=== PATIENT | female | born 1945 | race Caucasian/White ===

== ENCOUNTER → 2018-04-20 | Day surgery (SDC) | payer MEDICARE ==
[2018-04-19 09:05] VITALS: BMI 48.8
[~2018-04-20] MED LIST: Lidocaine 1% PF 5 ML VIAL ONE; PROPOFOL 200 MG/20 ML VIAL ONE
--- NOTE | 2018-04-20 12:07 | OP ---
DATE OF PROCEDURE: 04/20/2018 SURGEON: Dr. Jason Prak PROCEDURE: Esophagogastroduodenoscopy with biopsy and colonoscopy with snare polypectomy. PREOPERATIVE DIAGNOSES: Change in bowel habits and family history of colon cancer in two second degr ee relatives and dyspepsia. She was also noted to have ultrasound changes with increased echogenicit y suggestive of KELLEY or hepatocellular disease. She also has thrombocytopenia which could be an ariel cator of cirrhosis. OPERATIVE DETAIL: Informed consent was obtained from the patient. She was sedated with total intrav enous anesthesia. The bite block was placed and the endoscope was advanced easily to the second port ion of the duodenum and retroflexion was performed in the stomach. The esophagus was normal. There were no varices. The stomach had mild portal hypertensive gastropathy in the fundus and proximal bod y. There was erythematous gastritis in the antrum, which was mild and patchy. Biopsies were obtaine d to rule out H. pylori. The first and second portions of the duodenum were normal. The patient was turned around. Rectal exam was performed and was normal. The colonoscope was advanc ed to the cecum without difficulty. The ileocecal valve and appendiceal orifice were clearly identif ied. The preparation quality was good. A 5 mm polyp was removed from the distal sigmoid by cold sna re polypectomy. Retroflexed views in the rectum were unremarkable. IMPRESSION: 1. Mild portal hypertensive gastropathy in the fundus and proximal body of the stomach. 2. Mild erythematous patchy gastritis in the antrum, biopsies taken to rule out Helicobacter pylori. 3. Otherwise normal esophagogastroduodenoscopy. No varices present. 4. 5 mm polyp removed from the sigmoid colon by cold snare. 5. Otherwise normal colonoscopy. RECOMMENDATIONS: 1. Await histopathology. 2. Repeat colonoscopy in 5 years if the polyp is an adenoma. If the polyp is hyperplastic, then con apprentice pattern maker repeat a colonoscopy in 10 years depending on health status and guidelines at that time. 3. Check [facility] KELLEY lab to help further differentiate degree of fibrosis in the liver. She most likely has cirrhosis given the thrombocytopenia and coarse echotexture of the liver and portal hyper tensive gastropathy. She should follow through with hepatoma screening with ultrasound and alpha fet oprotein every 6 months, but at this point liver biopsy probably will not supervisor records change significa ntly as her liver function itself is normal. 4. Follow up in GI Clinic.
== END ==
LOC: SDC 09:08
PROVIDERS: ATTEND Internal Medicine Gastroenterology
PROC: 0DB78ZX Excision of Stomach, Pylorus, Via Natural or Artificial Opening Endoscopic, Diagnostic (ICD-10-PCS; principal; 2018-04-20)
PROC: 0DBN8ZX Excision of Sigmoid Colon, Via Natural or Artificial Opening Endoscopic, Diagnostic (ICD-10-PCS; 2018-04-20)
DX: D12.5 Benign neoplasm of sigmoid colon (principal); K29.50 Unspecified chronic gastritis without bleeding; K76.6 Portal hypertension; K31.89 Other diseases of stomach and duodenum; M19.90 Unspecified osteoarthritis, unspecified site; G47.30 Sleep apnea, unspecified; F32.9 Major depressive disorder, single episode, unspecified; E07.9 Disorder of thyroid, unspecified; Z79.899 Other long term (current) drug therapy
CPT/HCPCS: 88305; 88312

== ENCOUNTER 2018-11-16 08:37 | Outpatient (CLI) | payer MEDICARE ==
--- NOTE | 2018-11-16 09:55 | ULT ---
Hepatic sonogram with duplex evaluation HISTORY: Cirrhosis. FINDINGS: Gallbladder is surgically absent. Common duct is 0.4 cm. Liver has a very heterogeneous and coarse echotexture. Slightly nodular contour. Enlarged but unable to be measured with the sonographic windows. No free fluid is apparent. No free fluid in the abdomen. Spleen is 10.8 cm. Good color and spectral Doppler flow within the hepatic and splenic arteries. Portal venous flow is t owards the liver. Hepatic venous flow is towards the IVC. IMPRESSION: Hepatomegaly. Nodular contour of the left. Status post cholecystectomy. No evidence of biliary obstruction. No sonographic findings of portal venous hypertension.
== END 2018-11-16 08:38 | disposition home or self-care (01) ==
LOC: SCSULT 08:37 → ULT 08:38
PROVIDERS: ATTEND Internal Medicine Gastroenterology
DX: K74.60 Unspecified cirrhosis of liver (principal); R16.0 Hepatomegaly, not elsewhere classified; K76.89 Other specified diseases of liver; Z90.49 Acquired absence of other specified parts of digestive tract
CPT/HCPCS: 76705

== ENCOUNTER 2019-06-07 12:31 | Outpatient (CLI) | payer MEDICARE ==
--- NOTE | 2019-06-07 13:10 | MMO ---
Bilateral MAMMO Bilat Screen [facility]. CLINICAL HISTORY: Patient is 73 years old and is seen for screening. The patient has no family history of breast cancer. The patient has no personal history of cancer. VIEWS: The views performed were: bilateral craniocaudal with tomosynthesis; bilateral mediolateral oblique with tomosynthesis; and left mediolateral oblique. FILMS COMPARED: The present examination has been compared to prior imaging studies performed at [facility] on 05/23/2014 and 11/04/2015. This study has been interpreted with the assistance of computer-aided detection. MAMMOGRAM FINDINGS: There are scattered fibroglandular densities. There are no suspicious masses, suspicious calcifications, or new areas of architectural distortion. IMPRESSION: THERE IS NO MAMMOGRAPHIC EVIDENCE OF MALIGNANCY. A ROUTINE FOLLOW-UP MAMMOGRAM IN 1 YEAR IS RECOMMENDED. THE RESULTS OF THIS EXAM WERE SENT TO THE PATIENT. ACR BI-RADS Category 1 - Negative MAMMOGRAPHY NOTE: 1. A negative mammogram report should not delay a biopsy if a dominant of clinically suspicious mass is present. 2. Approximately 10% to 15% of breast cancers are not detected by mammography. 3. Adenosis and dense breasts may obscure an underlying neoplasm. Reported by: Lucita SHIRLEY Electonically Signed: [id number]
== END 2019-06-07 12:32 | disposition home or self-care (01) ==
LOC: BICMAMMO 12:31
PROVIDERS: ATTEND Family Medicine
DX: Z12.31 Encounter for screening mammogram for malignant neoplasm of breast (principal)
CPT/HCPCS: 77063; 77067

== ENCOUNTER 2019-06-14 09:57 | Outpatient (CLI) | payer MEDICARE ==
--- NOTE | 2019-06-14 13:09 | ULT ---
HEPATIC DOPPLER ULTRASOUND: Date: 06/14/19 COMPARISON: 11/16/18. HISTORY: Cirrhosis. COMPARISON: None. TECHNIQUE: Cedeño scale, color flow, Doppler imaging with spectral waveform analysis performed of the liver. FINDINGS: Limited evaluation due to body habitus. Limited evaluation of the pancreas. Heterogeneous echotexture of the liver is presumed to be due to hepatocellular disease. Limited evalu ation for hepatic masses and intrahepatic biliary dilatation. Surgically absent gallbladder. Spleen has a normal echotexture, measuring 10.6 cm in maximum dimension. Hepatic Doppler: There is patency and appropriate direction of flow in the main portal vein, right p ortal vein, left portal vein, right hepatic vein, left hepatic vein, middle hepatic vein, and hepatic artery. The splenic vein and artery have patency and appropriate direction of flow. IMPRESSION: 1. Normal hepatic Doppler. 2. Limited evaluation of the hepatic parenchyma due to body habitus. POS: [facility]
== END 2019-06-14 09:58 | disposition home or self-care (01) ==
LOC: BICULT 09:57
PROVIDERS: ATTEND Physician Assistant Medical
DX: K74.60 Unspecified cirrhosis of liver (principal)
CPT/HCPCS: 76705

== ENCOUNTER 2019-07-26 14:18 | Outpatient (CLI) | payer MEDICARE ==
--- NOTE | 2019-07-26 15:11 | CT ---
CT OF THE ABDOMEN WITH AND WITHOUT CONTRAST: DATE: 07/26/2019. COMPARISON: None. HISTORY: Cirrhosis. TECHNIQUE: Axial CT imaging is obtained at 5 mm intervals through the abdomen with and without IV contrast using hepatic mass protocol with coronal and sagittal reformatted imaging. FINDINGS: The imaged lung bases are unremarkable. The lack of oral contrast media limits assessment of the imag ed bowel. The pelvis is not imaged on this exam. The hepatic parenchyma is heterogeneous in the peripheral contour of the liver is irregular, consiste nt with the provided history of cirrhosis. No focal liver lesion is identified. Cholecystectomy clips are present. The spleen appears normal in size. The pancreas and adrenal glands are grossly unremarkable. No evidence for nephrolithiasis or hydronephrosis noted on either side. There is a cyst emanating from the posterior left renal midpole measuring approximately 1 cm. No ascites is noted in the upper abdomen. There is scattered atherosclerotic calcification of the abdominal aorta and its branches. Imaged bowel appears grossly unremarkable. There is prominent multilevel degenerative change within the lower lumbar spine with multilevel disc space narrowing, vacuum disc formation, and facet hypertrophic change. Age indeterminant anterior wedge compression fracture of the T12 vertebral body noted with approximately 40% loss of vertebral b susanne height anteriorly. No worrisome lytic or blastic bone lesions. IMPRESSION: Cirrhotic configuration of the liver. No focal liver lesion. No splenomegaly or upper abdominal ascit es. Transcribed Date/Time: 07/26/2019 3:20 PM
--- NOTE | 2019-07-26 16:11 | MRI ---
Cervical spine MRI without contrast: 07/26/2019 COMPARISON: None HISTORY: Cervical radiculopathy TECHNIQUE: Multiplanar multisequence MR imaging of the cervical spine without contrast FINDINGS: The sagittal STIR imaging demonstrates no evidence for osseous marrow edema. There is moderate degenerative change at the atlantoaxial interspace. The craniocervical junction virginie ears intact. There is mild multilevel anterolisthesis at C3-4, C4-5, and C7-T1, measuring up to approximately 3-4 mm. C2-3: There is left-sided facet and uncovertebral osteophyte formation. Mild left neural foraminal st enosis. No significant central canal or right neural foraminal stenosis. C3-4: There is disc space narrowing and disc desiccation. Prominent right-sided facet and uncovertebr al osteophyte formation with severe right-sided neural foraminal stenosis. No significant central canal or left neural foraminal stenosis. C4-5: There is disc space narrowing with disc desiccation. Bilateral facet and uncovertebral osteophy te formation noted, right greater than left. Mild left and moderate/severe right neural foraminal stenosis. C5-6: There is disc space narrowing with disc desiccation and disc bulge partially effacing the ventr al thecal sac and leading to a mild degree of central canal stenosis. Anterior osteophyte formation noted. Bilateral facet and uncovertebral osteophyte formation with moderate bilateral neural foramina l stenosis, left greater than right. C6-7: There is disc space narrowing with disc desiccation and disc bulge. This effaces the ventral th ecal sac and causes mild central canal stenosis. Bilateral facet and uncovertebral osteophyte formation leads to moderate/severe bilateral neural foraminal stenosis. C7-T1: Bilateral facet hypertrophy noted with mild bilateral neural foraminal stenosis. There is disc space narrowing and disc desiccation with no significant central canal stenosis. No discrete focal area of abnormal signal intensity within the cervical cord. IMPRESSION: Prominent multilevel cervical spine degenerative change as detailed above.
--- NOTE | 2019-07-26 16:32 | RAD ---
Cervical spine 4 views: 07/26/2019 COMPARISON: None HISTORY: Cervical radiculopathy FINDINGS: Neutral lateral examination demonstrates anterolisthesis at C3-4 measuring 4 mm and at C4-5 measuring 3 mm. There is disc space narrowing with degenerative endplate change and anterior osteophyte formation at C5-6 and C6-7. Multilevel bilateral facet hypertrophy noted. The flexion imaging demonstrates anterolisthesis at C3-4 measuring 5 mm and at C4-5 measuring 4 mm. On the extension imaging the anterolisthesis at C3-4 measures 2 mm and at C4-5 measures approximately 1 mm. Frontal imaging demonstrates right-sided facet and uncovertebral osteophyte formation at multiple levels, most prominent at C3-4, C4-5, and C5-6. Most prominent left-sided facet hypertrophy noted at C2-3. No prevertebral soft tissue swelling. IMPRESSION: Prominent multilevel cervical spine degenerative change as detailed above.
== END 2019-07-26 14:19 | disposition home or self-care (01) ==
LOC: BICCT 14:18
PROVIDERS: ATTEND Physician Assistant Medical
DX: M47.22 Other spondylosis with radiculopathy, cervical region (principal); K74.60 Unspecified cirrhosis of liver
CPT/HCPCS: 72050; 72141; 74170; 82565

== ENCOUNTER 2020-01-21 09:00 | Outpatient (CLI) | payer MEDICARE ==
--- NOTE | 2020-01-21 11:14 | ULT ---
HEPATIC ULTRASOUND WITH DOPPLER: INDICATION: Cirrhosis. FINDINGS: The patient is status post cholecystectomy. The liver is mildly heterogeneous with a nodular echotexture and irregular margin consistent with isabela nges of cirrhosis. No evidence of mass. Common bile duct is normal caliber measured at 4-5 mm. The spleen is upper normal size measured at 12 cm. Color Doppler and spectral analysis demonstrates hepatopetal blood flow in all visualized vessels. P ortal veins, hepatic veins, hepatic artery, IVC, and aorta were evaluated with Doppler. IMPRESSION: 1. Heterogeneous liver with changes consistent with cirrhosis. 2. Borderline splenomegaly. 3. Hepatopetal hepatic blood flow. POS: [facility]
== END 2020-01-21 09:01 | disposition home or self-care (01) ==
LOC: BICULT 09:00
PROVIDERS: ATTEND Physician Assistant Medical
DX: K74.60 Unspecified cirrhosis of liver (principal)
CPT/HCPCS: 76705

== ENCOUNTER 2020-02-07 13:33 | Outpatient (CLI) | payer MEDICARE ==
--- NOTE | 2020-02-07 15:30 | MRI ---
MRI lumbar spine noncontrast HISTORY: Low back pain with right leg radiculopathy. FINDINGS: The conus medullaris has normal appearance. There is desiccation of all of the intervertebr al discs. Images including the retroperitoneum show a 1.2 cm exophytic cyst projecting posteriorly from the lef t kidney. T10-11: Disc space narrowing and posterior disc bulge. At least moderate central canal stenosis. T11-12: Compression of the T12 superior endplate by an average of 40%. Minimal retropulsion of the villarreal perior endplate. No residual edema. Posterior disc bulge and circumferential degenerative changes. Mild stenosis of the central canal. Severe bilateral foraminal stenoses. T12-L1: Disc space narrowing and minimal degenerative retrolisthesis. Posterior disc bulge and circum ferential degenerative changes. Moderate stenosis of the central canal. Mild stenosis of each neural foramen. L1-2: Mild disc space narrowing. Osteophytosis of the facets. Central canal and neural foramina are p atent. L2-3: Osteophytosis of the facets. Central canal and neural foramina are patent. L3-4: Disc space narrowing. Minimal degenerative retrolisthesis. Posterior disc bulge and circumferen tial degenerative changes. Mild to moderate stenosis of the central canal. Mild stenosis of each neural foramen. L4-5: Disc space narrowing and minimal degenerative spondylolisthesis. Posterior bulge of the interve rtebral discs. Degenerative changes and prominent fluid associated with the facets, left greater than right. Severe stenosis of the central canal. Moderate stenosis of each neural foramen. L5-S1: Minimal degenerative spondylolisthesis. Thecal sac is patent. The spondylolisthesis and osteop hytosis result in moderate right and severe left foraminal stenoses. IMPRESSION : Multilevel degenerative changes throughout the lumbar spine as detailed above. Central canal stenosis is most severe at the L4-5 level. Foraminal stenosis most severe on the left at the lumbosacral junction. Degenerative changes lower thoracic spine also partially visualized with significant central canal st enosis at the T11-12 level. Mild to moderate chronic compression of the T12 superior endplate.
--- NOTE | 2020-02-07 15:52 | RAD ---
Exam: 5 views lumbar spine HISTORY: Lumbar radicular pain. Symptoms times a few weeks. COMPARISON: None FINDINGS: 5 lumbar type vertebra. Lumbar spine vertebral body heights are maintained. No fracture. Visualized sacrum and bony pelvis are intact. Calcification in the right hemipelvis may be associated with a partially calcified/calcified uterine leiomyoma Right hip arthroplasty is noted Mild loss of vertebral body height at T12, without retropulsion. Vacuum disc phenomenon at L3-L4, L4-L5 Spondylolisthesis: L4-L5: Neutral 4.0 mm of anterolisthesis; flexion 6.6 mm of anterolisthesis; extension 3.8 mm of ante rolisthesis. No associated pars defects. Extensive hypertrophy of the facets. L5-S1: Neutral 7.2 mm of anterolisthesis; flexion 1.1 mm of anterolisthesis; extension 3.4 mm of ante rolisthesis. No associated pars defects. Extensive hypertrophic changes in the posterior elements. IMPRESSION: Spondylolisthesis as detailed above. Extensive posterior element hypertrophy.
== END 2020-02-07 13:34 | disposition home or self-care (01) ==
LOC: BICMRI 13:33
PROVIDERS: ATTEND Nurse Practitioner Family
DX: M47.26 Other spondylosis with radiculopathy, lumbar region (principal); M43.16 Spondylolisthesis, lumbar region; M48.061 Spinal stenosis, lumbar region without neurogenic claudication; M48.07 Spinal stenosis, lumbosacral region; M47.815 Spondylosis without myelopathy or radiculopathy, thoracolumbar region; M48.04 Spinal stenosis, thoracic region
CPT/HCPCS: 72110; 72148

== ENCOUNTER 2020-09-22 07:50 | Outpatient (CLI) | payer MEDICARE ==
--- NOTE | 2020-09-22 09:13 | ULT ---
HEPATIC ULTRASOUND WITH MANDUJANO SCALE, COLOR FLOW, AND SPECTRAL DOPPLER IMAGING: HISTORY: Cirrhosis of the liver. COMPARISON: 01/21/2020. FINDINGS: The liver demonstrates heterogeneity and coarse nodular echotexture without focal mass or abnormal bi liary dilatation. The patient is post cholecystectomy. The common duct measures 6 mm in diameter. The spleen is enlarged measuring 14.7 cm in length. The visualized portions of the pancreas, aorta, and IVC are unremarkable. No free fluid is seen. The hepatic portal and splenic vasculature demonstrate normal flow and spectral waveforms. IMPRESSION: 1. Findings are consistent with cirrhosis of the liver without evidence of hepatic mass. 2. Splenomegaly. POS: [facility]
== END 2020-09-22 07:51 | disposition home or self-care (01) ==
LOC: BICULT 07:50
PROVIDERS: ATTEND Physician Assistant Medical
DX: K74.60 Unspecified cirrhosis of liver (principal); R15.9 Full incontinence of feces; R16.1 Splenomegaly, not elsewhere classified
CPT/HCPCS: 76705

== ENCOUNTER 2021-04-07 08:12 | Day surgery (SDC) | payer MEDICARE ==
[2021-04-03 11:44] VITALS: BMI 41.5
[2021-04-07] MEDS ORDERED: Fentanyl 100 MCG/2 ML VIAL ONE (09:52)
[2021-04-07] MEDS ORDERED: PROPOFOL 200 MG/20 ML VIAL ONE (10:02)
== END 2021-04-07 11:55 | disposition home or self-care (01) ==
LOC: SDC 08:12
PROVIDERS: ATTEND Internal Medicine Gastroenterology
PROC: 0DB78ZX Excision of Stomach, Pylorus, Via Natural or Artificial Opening Endoscopic, Diagnostic (ICD-10-PCS; principal; 2021-04-07)
PROC: 0D748ZZ Dilation of Esophagogastric Junction, Via Natural or Artificial Opening Endoscopic (ICD-10-PCS; 2021-04-07)
DX: R13.10 Dysphagia, unspecified (principal); K31.7 Polyp of stomach and duodenum; K29.50 Unspecified chronic gastritis without bleeding; K25.9 Gastric ulcer, unspecified as acute or chronic, without hemorrhage or perforation; K29.80 Duodenitis without bleeding; K21.9 Gastro-esophageal reflux disease without esophagitis; I10 Essential (primary) hypertension; E03.9 Hypothyroidism, unspecified; M15.9 Polyosteoarthritis, unspecified; M81.0 Age-related osteoporosis without current pathological fracture; G43.909 Migraine, unspecified, not intractable, without status migrainosus; Z79.899 Other long term (current) drug therapy; Z91.048 Other nonmedicinal substance allergy status
CPT/HCPCS: 88305; 88312; J3010

== ENCOUNTER 2021-07-02 08:47 | Outpatient (CLI) | payer MEDICARE | END 2021-07-02 08:48 | disposition home or self-care (01) | LOC: BICMRI 08:47 | PROVIDERS: ATTEND Nurse Practitioner Family | DX: M47.22 Other spondylosis with radiculopathy, cervical region (principal) | CPT/HCPCS: 72141 ==

== ENCOUNTER 2022-01-26 08:00 | Outpatient (CLI) | payer MEDICARE | END 2022-01-26 08:01 | disposition home or self-care (01) | LOC: BICMAMMO 08:00 | PROVIDERS: ATTEND Family Medicine | DX: Z13.820 Encounter for screening for osteoporosis (principal); M85.852 Other specified disorders of bone density and structure, left thigh; Z78.0 Asymptomatic menopausal state | CPT/HCPCS: 77063; 77067; 77080 ==

== ENCOUNTER 2022-07-07 13:01 | Emergency (ER) | payer MEDICARE ==
[~2022-07-07 13:01] MED LIST changes: +Iopamidol-370 76% 500 ML 1 ML ONE; -Lidocaine 1% PF 5 ML VIAL ONE; -PROPOFOL 200 MG/20 ML VIAL ONE
[2022-07-07 14:20] LABS: #Lymphocytes 1.6 thou/uL (1.20-3.40); #Monocytes 0.3 thou/uL (0.11-0.59); %Basophils 0.3 % (0.0-1.0); %Eosinophils 0.9 % (0.0-10.0); %Lymphocytes 31.8 % (21.0-51.0); %Monocytes 6.7 % (0.0-10.0); %Neutrophils 60.2 % (42.0-75.0); Hemoglobin 15.1 g/dL (12.0-16.0); Mean Corpuscular HGB CONC 33.1 g/dL (32.0-36.0); Mean Corpuscular Hemoglobin 31.8 pg (27.0-31.0); Mean Corpuscular Volume 96.3 fl (78.0-98.0); Mean Platelet Volume 9.4 fL (7.4-10.4); Platelet Count 128 10x3/uL (130-400); RBC Distribution Width 12.7 % (11.5-14.5); Red Blood Cell (RBC) Count 4.76 mill/uL (4.20-5.40)
[2022-07-07 14:39] LABS: ALT (SGPT) 38 U/L (8-55); AST (SGOT) 52 U/L (5-34); Albumin 4.1 g/dL (3.4-4.8); Alkaline Phosphatase 98 U/L (40-110); Anion Gap 11 mmol/L (10-20); BUN (Urea Nitrogen) 12 mg/dL (9.8-20.1); Bilirubin, Total 1.1 mg/dL (0.2-1.2); Calc. Creatinine Clearance 0 mL/min (70-130); Calcium 9.6 mg/dL (7.8-10.44); Carbon Dioxide 25 mmol/L (23-31); Chloride 104 mmol/L (98-107); Estimated GFR 75; Globulin 2.9 g/dL (2.4-3.5); Glucose 114 mg/dL (83-110); Lipase 27 U/L (8-78); Potassium 4.2 mmol/L (3.5-5.1); Sodium 136 mmol/L (136-145)
[2022-07-07 15:45] LABS: Bilirubin Negative (Negative); Blood, Urine Negative (Negative); Clarity Clear (Clear); Glucose, Urine (Dipstick) Normal (Negative); Ketone, Urine Negative (Negative); Leukocyte Negative Leu/uL (Negative); Nitrite Negative (Negative); Protein, Urine (Dipstick) Negative (Neg-Trace); Urobilinogen Normal mg/dL (Less than 2)
[2022-07-07] MEDS ORDERED: Ondansetron PF 4 MG/2 ML Vial ONE (16:02)
== END 2022-07-07 18:31 | disposition home or self-care (01) ==
LOC: ERS 13:01
DX: R10.31 Right lower quadrant pain (principal); E78.5 Hyperlipidemia, unspecified; I10 Essential (primary) hypertension; Z79.899 Other long term (current) drug therapy
CPT/HCPCS: 74177; 80053; 81003; 83605; 83690; 85025; 96374; 99284; U0003; U0005; 36415; J2405; Q9967

== ENCOUNTER 2023-06-01 08:40 | Outpatient (CLI) | payer MEDICARE | END 2023-06-01 08:41 | disposition home or self-care (01) | LOC: CT 08:40 | PROVIDERS: ATTEND Family Medicine | DX: R41.3 Other amnesia (principal) | CPT/HCPCS: 70470; 82565 ==

== ENCOUNTER 2023-06-16 17:00 | Outpatient (CLI) | payer MEDICARE | END 2023-06-16 17:01 | disposition home or self-care (01) | LOC: SLEEPLAB 17:00 | PROVIDERS: ATTEND Family Medicine | DX: G47.9 Sleep disorder, unspecified (principal); R06.81 Apnea, not elsewhere classified; R09.89 Other specified symptoms and signs involving the circulatory and respiratory systems; F41.9 Anxiety disorder, unspecified; E11.9 Type 2 diabetes mellitus without complications; I25.10 Atherosclerotic heart disease of native coronary artery without angina pectoris; G47.33 Obstructive sleep apnea (adult) (pediatric) | CPT/HCPCS: 95811 ==

== ENCOUNTER 2023-07-14 13:31 | Outpatient (CLI) | payer MEDICARE | END 2023-07-14 13:32 | disposition home or self-care (01) | LOC: BICMRI 13:31 | PROVIDERS: ATTEND Neurological Surgery | DX: M43.16 Spondylolisthesis, lumbar region (principal); R26.89 Other abnormalities of gait and mobility; M47.816 Spondylosis without myelopathy or radiculopathy, lumbar region; M43.8X6 Other specified deforming dorsopathies, lumbar region; M47.812 Spondylosis without myelopathy or radiculopathy, cervical region | CPT/HCPCS: 72110; 72131; 72141 ==

== ENCOUNTER 2023-08-20 12:16 | Emergency (ER) | payer MEDICARE, OTHER | END 2023-08-20 14:16 | disposition home or self-care (01) | LOC: ERS 12:16 | DX: S52.511A Displaced fracture of right radial styloid process, initial encounter for closed fracture (principal); E03.9 Hypothyroidism, unspecified; E78.5 Hyperlipidemia, unspecified; I10 Essential (primary) hypertension; W01.0XXA Fall on same level from slipping, tripping and stumbling without subsequent striking against object, initial encounter; Z79.899 Other long term (current) drug therapy | CPT/HCPCS: 29125 ==

== ENCOUNTER 2023-08-25 08:17 | Outpatient (CLI) | payer MEDICARE | END 2023-08-25 08:18 | disposition home or self-care (01) | LOC: BICMAMMO 08:17 | PROVIDERS: ATTEND Neurological Surgery | DX: Z13.820 Encounter for screening for osteoporosis (principal); M99.63 Osseous and subluxation stenosis of intervertebral foramina of lumbar region; M85.89 Other specified disorders of bone density and structure, multiple sites | CPT/HCPCS: 77080 ==

== ENCOUNTER 2023-08-30 13:39 | Outpatient (CLI) | payer MEDICARE, OTHER | END 2023-08-30 13:40 | disposition home or self-care (01) | LOC: RAD 13:39 | PROVIDERS: ATTEND Internal Medicine Critical Care Medicine | DX: R06.00 Dyspnea, unspecified (principal) | CPT/HCPCS: 71046 ==

== ENCOUNTER 2024-02-07 10:16 | Outpatient (CLI) | payer MEDICARE | END 2024-02-07 10:17 | disposition home or self-care (01) | LOC: BICRAD 10:16 | PROVIDERS: ATTEND Physician Assistant Surgical | DX: M48.062 Spinal stenosis, lumbar region with neurogenic claudication (principal); M41.9 Scoliosis, unspecified; M47.816 Spondylosis without myelopathy or radiculopathy, lumbar region; Z98.890 Other specified postprocedural states | CPT/HCPCS: 72100 ==

== ENCOUNTER 2024-04-26 13:14 | Outpatient (CLI) | payer MEDICARE | END 2024-04-26 13:15 | disposition home or self-care (01) | LOC: BICMAMMO 13:14 | PROVIDERS: ATTEND Student in an Organized Health Care Education/Training Program | DX: Z12.31 Encounter for screening mammogram for malignant neoplasm of breast (principal) | CPT/HCPCS: 77067 ==

== ENCOUNTER 2024-09-07 11:08 | Inpatient (IN) | payer MEDICARE ==
[2024-09-07 13:17] LABS: Bacteria/HPF 4+ HPF (None Seen); Bilirubin Negative (Negative); Blood, Urine 3+ (Negative); CAUTI Indications for Culture Alt mental st,lethar; Clarity Turbid (Clear); Glucose, Urine (Dipstick) Normal (Negative); Ketone, Urine Negative (Negative); Leukocyte 500 Leu/uL (Negative); Nitrite Negative (Negative); Protein, Urine (Dipstick) 20 mg/dL (Neg-Trace); RBC/HPF Greater than 50 HPF (0-3); Specific Gravity, Urine 1.016 (1.002-1.036); Squamous Epithelial 0-3 HPF (0-3); WBC/HPF Greater than 50 HPF (0-3)
[2024-09-07 13:21] LABS: Urine Culture Reflex Yes Yes
[2024-09-07] MEDS ORDERED: Sodium Chloride 0.9% 100 ML ONE (14:21)
[2024-09-07] MEDS ORDERED: cefTRIAXone (ROCEPHIN) 2 GM VIAL ONE (14:21)
[2024-09-07] MEDS ORDERED: Iopamidol-370 76% 500 ML MDV (1 ML CHARGE) ONE (14:44)
[2024-09-07 14:50] LABS: Hematocrit 36.3 % (36.0-47.0); Hemoglobin 11.8 g/dL (12.0-16.0); Mean Corpuscular HGB CONC 32.5 g/dL (32.0-36.0); Mean Corpuscular Hemoglobin 28.6 pg (27.0-31.0); Mean Corpuscular Volume 88.1 fL (78.0-98.0); Mean Platelet Volume 11.7 fL (7.4-10.4); Platelet Count 86 10x3/uL (130-400); RBC Distribution Width 17.6 % (11.5-14.5); Red Blood Cell (RBC) Count 4.12 mill/uL (4.20-5.40)
[2024-09-07 14:55] LABS: INR-International Normal Ratio 1.3; PTT 29.6 sec (22.9-36.1)
[2024-09-07 15:00] LABS: ALT (SGPT) 31 U/L (Less than 34); AST (SGOT) 45 U/L (11-34); Albumin 2.6 g/dL (3.1-4.5); Alkaline Phosphatase 92 U/L (40-110); Anion Gap 13 mmol/L (10-20); BUN (Urea Nitrogen) 29 mg/dL (9.8-20.1); Bilirubin, Total 1.2 mg/dL (0.3-1.2); CK (CPK) 51 U/L (29-168); Calc. Creatinine Clearance 0 mL/min (70-130); Carbon Dioxide 17 mmol/L (23-31); Chloride 112 mmol/L (98-107); Estimated GFR 43; Globulin 2.6 g/dL (2.4-3.5); Glucose 107 mg/dL (83-110); Magnesium 1.5 mg/dL (1.6-2.6); Potassium 4.4 mmol/L (3.5-5.1); Protein, Total 5.2 g/dL (5.8-8.1); Sodium 138 mmol/L (136-145)
[2024-09-07 15:04] LABS: Troponin I 0.019 ng/mL (< 0.028)
[2024-09-07 15:13] LABS: Band 12 % (5-11); Burr Cells SLIGHT = 2-5 cells HPF (0-1); Elliptocytes SLIGHT = 2-5 cells HPF (0-1); Lymphocytes 1 % (21-51); Macrocytosis SLIGHT = 6-15 cells HPF (0-5); Metamyelocyte 1 % (0-0); Monocytes 3 % (0-10); Neutrophil 83 % (42-75); Platelet Adequacy Comment Platelets Decreased; Polychromasia SLIGHT = 2-3 cells HPF (0-2); Vacuoles SLIGHT
[2024-09-07] MEDS ORDERED: Morphine 2 MG/ML VIAL ONE (16:52)
[2024-09-07] MEDS ORDERED: ePHEDrine Sulfate 50 MG/10 ML VIAL ONE (17:37)
[2024-09-07] MEDS ORDERED: Dexamethasone 20 MG/5 ML VIAL ONE (17:37)
[2024-09-07] MEDS ORDERED: Ondansetron PF 4 MG/2 ML Vial ONE (17:37)
[2024-09-07] MEDS ORDERED: Lidocaine 1% PF 5 ML VIAL ONE (17:37)
[2024-09-07] MEDS ORDERED: Promethazine HCl 25 MG/ML VIAL IM PRN (17:58)
[2024-09-07] MEDS ORDERED: Ondansetron HCl/PF 4 MG/2 ML Vial IVP PRN (17:58)
[2024-09-07] MEDS: LevoFLOXacin 500 mg/D5W 500 MG in Premix 1 BAG IVPB SCH (20:54)
[2024-09-07] MEDS: Midodrine HCl 5 MG TAB PO SCH (20:54)
[2024-09-07] MEDS: Meropenem 2 GM in Sodium Chloride 0.9% 100 ML IVPB SCH (21:10)
[2024-09-08 00:35] LABS: #Basophils 0.03 10x3/uL (0.0-0.2); #Eosinophils Less than 0.03 10x3/uL (0.0-0.7); %Basophils 0.2 % (0.0-1.0); %Lymphocytes 2.6 % (21.0-51.0); %Monocytes 2.2 % (0.0-10.0); %Neutrophils 93.5 % (42.0-75.0); Hematocrit 37.3 % (36.0-47.0); Hemoglobin 11.7 g/dL (12.0-16.0); Mean Corpuscular HGB CONC 31.4 g/dL (32.0-36.0); Mean Corpuscular Hemoglobin 28.1 pg (27.0-31.0); Mean Corpuscular Volume 89.4 fL (78.0-98.0); Mean Platelet Volume 11.7 fL (7.4-10.4); Platelet Count 84 10x3/uL (130-400); RBC Distribution Width 17.8 % (11.5-14.5); Red Blood Cell (RBC) Count 4.17 mill/uL (4.20-5.40)
[2024-09-08 00:39] LABS: Lactic Acid 1.61 mmol/L (0.50-2.20)
[2024-09-08 00:43] LABS: ALT (SGPT) 31 U/L (Less than 34); AST (SGOT) 42 U/L (11-34); Albumin 2.7 g/dL (3.1-4.5); Alkaline Phosphatase 87 U/L (40-110); Anion Gap 14 mmol/L (10-20); BUN (Urea Nitrogen) 25 mg/dL (9.8-20.1); Calc. Creatinine Clearance 92 mL/min (70-130); Calcium 8.3 mg/dL (7.8-10.44); Carbon Dioxide 17 mmol/L (23-31); Chloride 113 mmol/L (98-107); Estimated GFR 75; Globulin 2.9 g/dL (2.4-3.5); Glucose 134 mg/dL (83-110); Potassium 4.5 mmol/L (3.5-5.1); Protein, Total 5.6 g/dL (5.8-8.1); Sodium 139 mmol/L (136-145)
[2024-09-08 02:03] LABS: Bilirubin, Total 0.9 mg/dL (0.3-1.2)
[2024-09-08] MEDS: Meropenem 2 GM in Sodium Chloride 0.9% 100 ML IVPB SCH (03:42)
[2024-09-08] MEDS: Enoxaparin 40 MG (0.4 mL) SYRINGE SC SCH (08:53)
[2024-09-08] MEDS ORDERED: Enoxaparin 40 MG (0.4 mL) SYRINGE SC SCH (09:00)
[2024-09-08] MEDS ORDERED: ALPRAZolam 0.25 MG TAB PO PRN (09:10)
[2024-09-08] MEDS ORDERED: Albuterol 200 PUFF (6.7GM INHALER) INH PRN (10:30)
[2024-09-08] MEDS: Sodium Bicarbonate Tab 325 MG TAB PO SCH ×2 (12:32→19:42)
[2024-09-08] MEDS: Acetaminophen 325 MG TAB PO PRN (19:42)
[2024-09-09 04:43] LABS: Anion Gap 12 mmol/L (10-20); BUN (Urea Nitrogen) 26 mg/dL (9.8-20.1); Calc. Creatinine Clearance 111 mL/min (70-130); Calcium 9.1 mg/dL (7.8-10.44); Carbon Dioxide 21 mmol/L (23-31); Chloride 110 mmol/L (98-107); Estimated GFR 90; Glucose 99 mg/dL (83-110); Potassium 4.6 mmol/L (3.5-5.1); Sodium 138 mmol/L (136-145)
[2024-09-09 04:59] LABS: #Basophils Less than 0.03 10x3/uL (0.0-0.2); #Eosinophils Less than 0.03 10x3/uL (0.0-0.7); %Basophils 0.1 % (0.0-1.0); %Eosinophils 0.1 % (0.0-10.0); %Lymphocytes 9.8 % (21.0-51.0); %Monocytes 5.6 % (0.0-10.0); %Neutrophils 83.4 % (42.0-75.0); Hematocrit 38.8 % (36.0-47.0); Hemoglobin 12.3 g/dL (12.0-16.0); Mean Corpuscular HGB CONC 31.7 g/dL (32.0-36.0); Mean Corpuscular Hemoglobin 27.8 pg (27.0-31.0); Mean Corpuscular Volume 87.8 fL (78.0-98.0); Mean Platelet Volume 12.1 fL (7.4-10.4); Platelet Count 97 10x3/uL (130-400); RBC Distribution Width 17.6 % (11.5-14.5); Red Blood Cell (RBC) Count 4.42 mill/uL (4.20-5.40)
[2024-09-09] MEDS: Levothyroxine Sodium 112 MCG TAB PO SCH (06:31)
[2024-09-09] MEDS: Levothyroxine Sodium 25 MCG TAB PO SCH (06:31)
[2024-09-09] MEDS ORDERED: Temazepam 15 MG CAP PO PRN (08:39)
[2024-09-09] MEDS ORDERED: DULoxetine 20 MG CAP PO SCH (09:00)
[2024-09-09] MEDS ORDERED: ALPRAZolam 0.25 MG TAB PO PRN (09:01)
[2024-09-09] MEDS: Rosuvastatin 10 MG TAB PO SCH (09:25)
[2024-09-09] MEDS: Valsartan 80 MG TAB PO SCH (09:25)
[2024-09-09] MEDS: Trospium 20 MG TAB PO SCH (09:25)
[2024-09-09] MEDS: Memantine 5 MG TAB PO SCH (09:26)
[2024-09-09] MEDS: Gabapentin 300 MG CAP PO SCH ×2 (09:26→20:13)
[2024-09-09] MEDS: DULoxetine 20 MG CAP PO SCH (09:26)
[2024-09-09] MEDS: Amlodipine 5 MG TAB PO SCH (09:27)
[2024-09-09] MEDS: FLU (Fluad Triv) TS24-25 (65UP)/MF59C/PF 45 MCG/0.5 ML Syringe IM ONE (10:32)
[2024-09-09] MEDS: Polyethylene Glycol 3350 17 GM Packet PO SCH (11:01)
[2024-09-09] MEDS: Senokot S 8.6-50 MG TAB PO SCH ×2 (11:01→20:14)
[2024-09-09] MEDS: Aspirin 81 mg Enteric Coated Tablet PO SCH (20:13)
[2024-09-09] MEDS: HYDROcodone/Acetaminophen 5/325 mg Tablet PO PRN (20:19)
[2024-09-10 05:00] LABS: #Basophils Less than 0.03 10x3/uL (0.0-0.2); %Basophils 0.3 % (0.0-1.0); %Eosinophils 2.7 % (0.0-10.0); %Lymphocytes 13.7 % (21.0-51.0); %Monocytes 6.3 % (0.0-10.0); %Neutrophils 76.1 % (42.0-75.0); Hematocrit 38.9 % (36.0-47.0); Hemoglobin 12.4 g/dL (12.0-16.0); Mean Corpuscular HGB CONC 31.9 g/dL (32.0-36.0); Mean Corpuscular Hemoglobin 27.9 pg (27.0-31.0); Mean Corpuscular Volume 87.4 fL (78.0-98.0); Mean Platelet Volume 12.2 fL (7.4-10.4); Platelet Count 87 10x3/uL (130-400); RBC Distribution Width 17.3 % (11.5-14.5); Red Blood Cell (RBC) Count 4.45 mill/uL (4.20-5.40)
[2024-09-10 05:14] LABS: Anion Gap 13 mmol/L (10-20); BUN (Urea Nitrogen) 16 mg/dL (9.8-20.1); Calc. Creatinine Clearance 118 mL/min (70-130); Calcium 8.9 mg/dL (7.8-10.44); Carbon Dioxide 24 mmol/L (23-31); Chloride 105 mmol/L (98-107); Estimated GFR 91; Glucose 91 mg/dL (83-110); Potassium 4.2 mmol/L (3.5-5.1); Sodium 138 mmol/L (136-145)
[2024-09-10] MEDS: Polyethylene Glycol 3350 17 GM Packet PO SCH (09:52)
[2024-09-10 11:47] VITALS: BP 117/68; TEMP 97.8
== END 2024-09-10 15:31 | disposition home or self-care (01) | DRG 854 ==
LOC: SUATTDRO 11:08 → ERS 11:08 → SDC 18:23 → PCU 18:24
PROVIDERS: ADMIT Family Medicine; ATTEND Family Medicine
PROC: 0T778DZ Dilation of Left Ureter with Intraluminal Device, Via Natural or Artificial Opening Endoscopic (ICD-10-PCS; principal; 2024-09-07)
PROC: BT1F1ZZ Fluoroscopy of Left Kidney, Ureter and Bladder using Low Osmolar Contrast (ICD-10-PCS; 2024-09-07)
PROC: 3E03329 Introduction of Other Anti-infective into Peripheral Vein, Percutaneous Approach (ICD-10-PCS; 2024-09-07)
DX: A41.51 Sepsis due to Escherichia coli [E. coli] (principal); E87.20 Acidosis, unspecified; N13.6 Pyonephrosis; N17.9 Acute kidney failure, unspecified; I10 Essential (primary) hypertension; E78.5 Hyperlipidemia, unspecified; E03.9 Hypothyroidism, unspecified; D69.6 Thrombocytopenia, unspecified; K74.60 Unspecified cirrhosis of liver; F32.A Depression, unspecified; Z91.048 Other nonmedicinal substance allergy status; Z98.890 Other specified postprocedural states; Z96.653 Presence of artificial knee joint, bilateral; Z90.89 Acquired absence of other organs; Z90.49 Acquired absence of other specified parts of digestive tract; Z98.51 Tubal ligation status; M19.90 Unspecified osteoarthritis, unspecified site; G47.33 Obstructive sleep apnea (adult) (pediatric); Z79.899 Other long term (current) drug therapy
CPT/HCPCS: 36415; 70450; 71045; 74177; 74420; 80048; 80053; 81001; 82550; 83605; 83735; 83880; 84484; 85025; 85610; 85730; 87040; 87077; 87086; 87186; 87428; 93005; 94760; 96361; 96365; C2617; J0696; J1100; J1650; J1956; J2183; J2272; J2405; J2704; Q9967

== ENCOUNTER 2025-03-20 10:13 | Outpatient (CLI) | payer MEDICARE | END 2025-03-20 10:14 | disposition home or self-care (01) | LOC: BICULT 10:13 | PROVIDERS: ATTEND Urology | DX: N28.1 Cyst of kidney, acquired (principal); M47.816 Spondylosis without myelopathy or radiculopathy, lumbar region | CPT/HCPCS: 74018; 76770 ==

== ENCOUNTER 2025-07-01 14:38 | Outpatient (CLI) | payer MEDICARE | END 2025-07-01 14:39 | disposition home or self-care (01) | LOC: BICRAD 14:38 | PROVIDERS: ATTEND Family Medicine | DX: M25.512 Pain in left shoulder (principal) ==